=== PATIENT | female | born 1990 | race Caucasian/White ===

== ENCOUNTER 2017-06-07 18:03 | Emergency (ER) | payer MEDICAID ==
[~2017-06-07] VITALS: Ht 170.2 cm; Wt 54.4 kg
[2017-06-07 18:09] VITALS: BP 133/89
[2017-06-07] MEDS ORDERED: Norco 10mg/325mg tab ORAL ONE (18:15)
[2017-06-07] MEDS ORDERED: Norco 10mg/325mg tab ONE (18:15)
[2017-06-07] MEDS ORDERED: LORazepam Inj 2mg/ml 1ml IV ONE (18:45)
[2017-06-07] MEDS ORDERED: Morphine Sulfate 4mg/ml Inj IVP ONE (18:45)
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
[2017-06-07] MEDS ORDERED: NORCO 5-325 TA1 EACH ORAL (19:52)
[2017-06-07 20:07] VITALS: BP 133/89
== END 2017-06-07 20:08 | disposition home or self-care (01) ==
LOC: EMR 19:29
DX: T22.211A Burn of second degree of right forearm, initial encounter (principal); T31.0 Burns involving less than 10% of body surface; X16.XXXA Contact with hot heating appliances, radiators and pipes, initial encounter; Y92.89 Other specified places as the place of occurrence of the external cause; Z88.0 Allergy status to penicillin; Z88.8 Allergy status to other drugs, medicaments and biological substances
CPT/HCPCS: 16020; 99283; J2270; J2405